=== PATIENT | female | born 1960 | race Caucasian/White ===

== ENCOUNTER → 2016-05-10 | Outpatient (CLI) | payer MEDICARE, OTHER ==
[~2016-05-10] MED LIST: ACTOS PO; ATENOLOL PO; COZAAR25 MG PO; DEPO-PROVER150 MG/ML INJ; GLUCOTROL PO; HCTZ PO; KCL PO; PROTONIX PO; ZYRTEC PO; [UNRECOGNIZED DRUG - OTHER] OS
--- NOTE | ~2016-05-10 | US128 ---
[id number] [facility] [address] [place], [place] [address] [id number] O MR#: [id number] [employer] #: [id number] NAME: FERNANDO DENG : 1960 SEX: F STUDY DATE/TIME: 05/10/2016 13:06 UNIT: [facility]US ROOM: STUDY DESCRIPTION: Thyroid Attending Physician: Daron De Oliveira M.D. Referring Physician: Daron De Oliveira M.D. Ordering Physician: Daron De Oliveira M.D. Primary Care Physician: Debra Neri M.D. MEDICAL IMAGING REPORT This report is preliminary unless electronic signature is present EXAM Thyroid ultrasound. INDICATION Multiple thyroid nodules. This is a followup study, most recent study was February 02, 2015. TECHNIQUE Costa-scale and color Doppler sonographic images were obtained through the thyroid gland. FINDINGS Right lobe of thyroid gland measures 1.7 x 2.3 x 3.8 cm, left lobe measures 0.9 x 1.6 x 3.3 cm. The patient has multiple nodules on both lobes of the thyroid gland. The single largest on the right is a cyst measuring up to 1.2 x 1.4 x 1.7 cm, which is unchanged when compared to the prior exam. Single largest on the left is also a cyst which contains a septation. This cyst measures 0.7 x 1.0 x 1.1 cm. Again, probably not significantly changed. The magazine editor measures a predominantly solid nodule adjacent to the dominant cyst within the right lobe of the thyroid gland. This was present on the prior examination but was not measured. It measures 0.9 x 0.6 x 1.1 cm. Again, it was present on the prior study but was not measured as a discrete nodule at the time. I am not convinced it is significantly changed in size when compared to that study. Gypsum Calciner also measures a hyperechoic nodule within the right lobe of the thyroid gland within the inferior pole which I do not clearly identify on the prior study. This nodule measures up to 5 x 4 x 5 mm in size. Again, it does not appear particularly hypervascular. Within the left lobe of the thyroid gland within the lower midportion to lower pole, there is a predominantly cystic nodule measuring 4 x 4 x 6 mm in size. This I am also not clearly able to identify on the prior study, although some of the discrepancy may be related to differences in technique. IMPRESSION The patient has multiple thyroid nodules. Cystic nodules which are the dominant nodules within both lobes appear to be stable when compared to the prior study from January 2015. There is a predominantly solid nodule seen adjacent to the dominant cyst within the right lobe of the thyroid gland which was not measured as a discrete nodule on the prior study, but I think is probably not significantly increased in size. Two additional nodules including a hyperechoic nodule within the right lobe of the thyroid gland and a predominately cystic nodule within the left lobe of the thyroid gland are not clearly identified on the prior study, although again some of the discrepancy may be related to differences in technique. I would suggest a short-term sonographic followup in 6 months as none of these meet size criteria for percutaneous sampling. Dictated by... Luly Bailey M.D. THIS IS AN ELECTRONICALLY VERIFIED REPORT Luly Bailey M.D. at 05/11/2016 4:43 PM PAUL/pina TD: 05/11/2016 10:50 JOB #: [id number] MEDICAL IMAGING REPORT COPY
== END | disposition home or self-care (01) ==
LOC: CGUS 12:15
DX: E04.1 Nontoxic single thyroid nodule (principal); E04.2 Nontoxic multinodular goiter
CPT/HCPCS: 76536